=== PATIENT | male | born 1970 | race Caucasian/White ===

== ENCOUNTER → 2020-10-29 | Outpatient (CLI) | payer OTHER | END | disposition home or self-care (01) | LOC: CFH 15:02 | PROVIDERS: ATTEND Family Medicine | DX: N20.1 Calculus of ureter (principal); N13.4 Hydroureter; R10.30 Lower abdominal pain, unspecified; R31.0 Gross hematuria | CPT/HCPCS: 74176 ==

== ENCOUNTER 2020-10-30 07:37 | Outpatient (CLI) | payer OTHER ==
[2020-10-30 07:51] LABS: BASOPHILS % (AUTO) 1 % (0-1); EOSINOPHILS % (AUTO) 4 % (1-7); LYMPHOCYTES % (AUTO) 37 % (22-44); MEAN CORPUSCULAR HEMOGLOBIN 29.3 pg (27.5-34.5); MEAN CORPUSCULAR HGB CONC 34.2 g/dL (33.2-36.2); MEAN PLATELET VOLUME 8.6 fL (7.4-10.4); MONOCYTES % (AUTO) 11 % (2-9); NEUTROPHILS % (AUTO) 47 % (42-75); PLATELET COUNT 264 x10^3/uL (130-400); RED BLOOD COUNT 5.26 x10^6/uL (4.38-5.82); RED CELL DISTRIBUTION WIDTH 13.3 % (9.4-14.8)
[2020-10-30 08:07] LABS: ALBUMIN 4.1 g/dL (3.4-5.0); ANION GAP 4 mmol/L (5-15); CALCIUM 9.2 mg/dL (8.5-10.1); CHLORIDE 106 mmol/L (98-107)
[2020-10-30 08:12] LABS: ALANINE AMINOTRANSFERASE 27 U/L (12-78); ALKALINE PHOSPHATASE 46 U/L (45-117); BILIRUBIN,TOTAL 0.8 mg/dL (0.2-1.0); TOTAL PROTEIN 7.3 g/dL (6.4-8.2)
== END 2020-10-30 23:59 | disposition home or self-care (01) ==
LOC: LAB 07:37
PROVIDERS: ATTEND Family Medicine
DX: R31.0 Gross hematuria (principal); R10.30 Lower abdominal pain, unspecified
CPT/HCPCS: 36415; 80053; 85025

== ENCOUNTER 2020-12-03 07:37 | Inpatient (IN) | payer OTHER ==
[~2020-12-03] VITALS: Ht 177.8 cm; Wt 96.3 kg
--- NOTE | 2020-12-03 08:00 | NUR ---
PT C/O RIGHT LOWER ABD/FLANK PAIN. PT STATES HE HAD URETHRAL PAIN THIS AM AT 0500 WHEN URINATING THAT PROGRESSED TO HIS LOWER ABD AREA. PAIN 6/10, INITALLY 02/09. PT HX OF KIDNEY STONES. PT DENIES N/V. URINE SAMPLE COLLECTED AND SENT TO LAB. MD BEDSIDE. PT CALL LIGHT WITHIN REACH. PT ADVISING INTAKE THIS AM OF 8 OZ OF COFFEE AND 16 OZ WATER.
[2020-12-03 08:08] LABS: MICROSCOPIC AUTO
[2020-12-03 08:15] LABS: BASOPHILS % (AUTO) 1 % (0-1); EOSINOPHILS % (AUTO) 3 % (1-7); LYMPHOCYTES % (AUTO) 35 % (22-44); MEAN CORPUSCULAR HEMOGLOBIN 29.7 pg (27.5-34.5); MEAN CORPUSCULAR HGB CONC 34.6 g/dL (33.2-36.2); MEAN PLATELET VOLUME 8.2 fL (7.4-10.4); MONOCYTES % (AUTO) 9 % (2-9); NEUTROPHILS % (AUTO) 53 % (42-75); PLATELET COUNT 242 x10^3/uL (130-400); RED BLOOD COUNT 5.08 x10^6/uL (4.38-5.82); RED CELL DISTRIBUTION WIDTH 12.9 % (9.4-14.8)
[2020-12-03 08:16] LABS: MD NO
[2020-12-03 08:25] LABS: ALANINE AMINOTRANSFERASE 25 U/L (12-78); ANION GAP 7 mmol/L (5-15); CALCIUM 9.3 mg/dL (8.5-10.1); CHLORIDE 108 mmol/L (98-107); CREATININE 0.97 mg/dL (0.7-1.3)
[2020-12-03 08:28] LABS: ALKALINE PHOSPHATASE 40 U/L (45-117); TOTAL PROTEIN 6.7 g/dL (6.4-8.2)
--- NOTE | 2020-12-03 09:51 | NUR ---
REPORT FROM MATTIE, ASSUME CARE OF PT.
[2020-12-03] MEDS ORDERED: SODIUM CHLORIDE FLUSH 10ML SYR IVF PRN (11:00)
[2020-12-03] MEDS ORDERED: SODIUM CHLORIDE 0.9% 1,000 ML IV ONE (11:00)
--- NOTE | 2020-12-03 11:02 | NUR ---
RECEIVED REPORT FROM KATELYN STEPHENSON. ASSUMING CARE AT THIS TIME. PT TO BE ADMIT. PIV PLACED BY HAND KNITTER. IVF RUNNING.
[2020-12-03] MEDS ORDERED: TAMS-11 PO (11:06)
--- NOTE | 2020-12-03 11:11 | NUR ---
REPORT GIVEN TO BRUCE STEPHENSON. PT RTG TO ROOM [id number].
[2020-12-03 11:27] VITALS: BP 137/82
[2020-12-03] MEDS ORDERED: morphine SULFATE 10 MG/ML, 1ML IVPush PRN (13:00)
[2020-12-03] MEDS ORDERED: ACETAMINOPHEN 325 MG TABLET PO PRN ×2 (13:00→17:30)
[2020-12-03] MEDS ORDERED: ONDANSETRON 2MG/ML, 2ML IVPush PRN ×2 (13:00→17:30)
[2020-12-03] MEDS ORDERED: HYDROcodone/APAP 5/325 TABLET PO PRN (13:00)
[2020-12-03] MEDS ORDERED: ONDANSETRON ODT 4 MG PO PRN (13:00)
[2020-12-03] MEDS ORDERED: ENALAPRILAT 1.25 MG/ML, 2ML IVPush PRN (13:00)
[2020-12-03 13:36] VITALS: BP 136/85
[2020-12-03] MEDS ORDERED: CHLORHEXIDINE 15 ML UDC ONE (14:54)
[2020-12-03] MEDS ORDERED: CHLORHEXIDINE 15 ML UDC PO ONE (15:00)
[2020-12-03] MEDS ORDERED: PROPOFOL 50 ML ONE ×2 (17:23→18:01)
[2020-12-03] MEDS ORDERED: MIDAZOLAM 1 MG/ML, 2ML ONE (17:25)
[2020-12-03] MEDS ORDERED: FENTANYL PF 100 MCG/2ML ONE ×2 (17:25→17:52)
[2020-12-03] MEDS ORDERED: LIDOCAINE-MPF 2% ,5ML ONE (17:27)
[2020-12-03] MEDS ORDERED: LABETALOL 5MG/ML, 20ML IV PRN (17:30)
[2020-12-03] MEDS ORDERED: EPHEDRINE 50 MG/ML, 1ML IVPush PRN (17:30)
[2020-12-03] MEDS ORDERED: FENTANYL PF 100 MCG/2ML IV PRN (17:30)
[2020-12-03] MEDS ORDERED: OXYcodone 5 MG/5 ML ORAL.SOL UDC PO PRN (17:30)
[2020-12-03] MEDS ORDERED: hydrALAzine 20 MG/ML, 1ML IV PRN (17:30)
[2020-12-03] MEDS ORDERED: HYDROmorphone 1 MG/ML, 1ML INJ IVPush PRN (17:30)
[2020-12-03] MEDS ORDERED: PROMETHAZINE 25 MG/ML, 1ML IVPush PRN (17:30)
[2020-12-03] MEDS ORDERED: CEFAZOLIN 1,000 MG ONE (17:54)
[2020-12-03] MEDS ORDERED: ONDANSETRON 2MG/ML, 2ML ONE (17:54)
[2020-12-03] MEDS ORDERED: PROPOFOL 10 MG/ML, 20ML ONE (17:54)
[2020-12-03] MEDS ORDERED: DEXAMETHASONE 4 MG/ML, 1ML ONE (17:54)
[2020-12-03] MEDS ORDERED: OMNIPAQUE 350 MG/ML, 50 ML BOTTLE ONE (17:55)
[2020-12-03] MEDS ORDERED: ACET1TAB64 PO (20:59)
[2020-12-03 21:41] VITALS: BP 131/85
== END 2020-12-03 21:41 | disposition home or self-care (01) | DRG 670 ==
LOC: ED 09:37 → 4NE 10:44 → SUATTDRO 11:22 → 4NE 11:23 → ED 11:28
PROVIDERS: ADMIT Hospitalist; ATTEND Hospitalist
PROC: 0TC68ZZ Extirpation of Matter from Right Ureter, Via Natural or Artificial Opening Endoscopic (ICD-10-PCS; principal; 2020-12-03 17:30)
DX: N13.2 Hydronephrosis with renal and ureteral calculous obstruction (principal); N50.819 Testicular pain, unspecified; Z20.822 Contact with and (suspected) exposure to COVID-19; Z88.2 Allergy status to sulfonamides; Z88.8 Allergy status to other drugs, medicaments and biological substances
CPT/HCPCS: 36415; 74018; 76000; 99285; J3490; 74176; 80053; 81001; 82360; 85025; 87635; 88300; C1726; G0378; J0690; J1100; J2250; J2405; J2704; J3010; Q9967; J7030